=== PATIENT | male | born 1950 | race Caucasian/White ===

== ENCOUNTER 2018-08-29 16:30 | Observation (INO) | payer OTHER ==
[2018-08-29 17:09] LABS: Absolute Lymphocytes (CBC) 2.3 K/uL (0.7-4.9); Basophils % 0.2 % (0-1.3); Eosinophils % 0.5 % (0-4.4); Hematocrit 44.9 % (39.6-49.0); MPV 7.8 fL (7.6-11.3); Monocytes % 7.8 % (3.3-12.3); RBC Red Blood Cell Count 4.88 M/uL (4.33-5.43)
[2018-08-29 17:12] LABS: Protime INR 0.89
[2018-08-29] MEDS ORDERED: FENTANYL CITR 100 MCG/2 ML ONE (17:16)
[2018-08-29] MEDS ORDERED: PANTOPRAZOLE 40 MG INJ ONE (17:17)
[2018-08-29 17:30] LABS: ALT/SGPT 53 U/L (12-78); AST/SGOT 28 U/L (15-37); Albumin 4.5 g/dL (3.4-5.0); Alkaline Phosphatase 90 U/L (45-117); BUN Blood Urea Nitrogen 10 mg/dL (7-18); Bicarbonate 28 mmol/L (21-32); Bilirubin Direct < 0.1 mg/dL (0-0.2); Bilirubin Total 0.6 mg/dL (0.2-1.0); Glucose Level 87 mg/dL (74-106); Lipase 188 U/L (73-393); Magnesium 2.1 mg/dL (1.8-2.4); NT PRO-BNP 282 pg/mL (<125); Potassium 3.5 mmol/L (3.5-5.1); Protein, Total 7.6 g/dL (6.4-8.2); Sodium Level 137 mmol/L (136-145); Troponin (Emerg Dept Use Only) < 0.02 ng/mL (0.0-0.045)
[2018-08-29] MEDS ORDERED: PANTOPRAZOLE INJ 80 MG in NA CHLORIDE 0.9% 250 ML IV ONE (18:00)
--- NOTE | 2018-08-29 18:04 | RAD REPORT ---
EXAM DESCRIPTION: CT - Chest For Pe Angio - 08/29/2018 5:52 pm CLINICAL HISTORY: Chest pain. Chest pain;Dyspnea COMPARISON: No comparisons TECHNIQUE: CT angiogram of the pulmonary arteries was performed with MIP. All CT scans are performed using dose optimization technique as appropriate and may include automated exposure control or mA/KV adjustment according to patient size. FINDINGS: No evidence of pulmonary thromboembolism. No acute aortic finding demonstrated. The lungs are mildly emphysematous. No significant pericardial or pleural fluid. No concerning bony finding. IMPRESSION: No evidence of pulmonary thromboembolism. Mild COPD.
--- NOTE | 2018-08-29 18:07 | RAD REPORT ---
EXAM DESCRIPTION: CTAbdomen Pelvis W Contrast - 08/29/2018 5:53 pm CLINICAL HISTORY: Abdominal pain. no iv or oral contrast;Abd pain COMPARISON: No comparisons TECHNIQUE: Biphasic CT imaging of the abdomen and pelvis was performed with 100 ml non-ionic IV cont rast. All CT scans are performed using dose optimization technique as appropriate and may include automated exposure control or mA/KV adjustment according to patient size. FINDINGS: The lung bases are clear. The liver, spleen, pancreas, adrenal glands and kidneys are within normal limits. No bowel obstruction, free air, free fluid or abscess. The appendix is normal. No evidence of signi ficant lymphadenopathy. Moderate lumbar degenerative changes. IMPRESSION: No acute intra-abdominal or pelvic finding.
--- NOTE | 2018-08-29 18:47 | ER ---
Nurse's Notes [facility] Name: Kiko Kirkland Age: 68 yrs Sex: Male : 1950 Arrival Date: 08/29/2018 Time: 16:38 Bed 2 Private MD: Diagnosis: Chest pain, unspecified;Abdominal tenderness;Gastrointestinal hemorrhage, unspecified;Low back pain;Elevated white blood cell count;Tobacco use Presentation: 08/29 16:38 Presenting complaint: Patient states: abd pain, chest pain, and back pain with aa5 dark/bright red blood in stool and vomiting coffee ground. Pt states "I saw Dr. Floyd and he sent me to Dr. Mcduffie (GI) and he did a CT about 2 months ago". Pt also reports blood in urine and reports he has lost approximately 70lbs over the last 6 months. 16:38 Transition of care: patient was not received from another setting of care. Onset of aa5 symptoms was 2018. Risk Assessment: Do you want to hurt yourself or someone else? Patient reports no desire to harm self or others. Initial Sepsis Screen: Does the patient meet any 2 criteria? HR > 90 bpm. Does the patient have a suspected source of infection? No. Patient's initial sepsis screen is negative. Care prior to arrival: None. 16:38 Acuity: [place] 2 aa5 16:38 Method Of Arrival: [facility]: [facility] aa5 Historical: - Allergies: 16:38 No Known Allergies; aa5 - PMHx: 16:38 Thyroid problem; Chronic back pain; aa5 16:38 Hypertension; aa5 - Immunization history:: Adult Immunizations unknown. - Social history:: Smoking status: Patient uses tobacco products, smokes two packs cigarettes per day. - Ebola Screening: : No symptoms or risks identified at this time. Screenin:40 Abuse screen: Denies threats or abuse. Nutritional screening: No deficits noted. aa5 Tuberculosis screening: No symptoms or risk factors identified. Fall Risk IV access (20 points). Total [place] Fall Scale indicates No Risk (0-24 pts). Assessment: 16:38 General: Appears uncomfortable, Behavior is calm, cooperative. Pain: Complains of pain aa5 in right upper quadrant, left upper quadrant, right lower quadrant and left lower quadrant, mid-sternal area, and lower back Pain does not radiate. Pain currently is 10 out of 10 on a pain scale. Quality of pain is described as burning, aching, crampy, Pain began approximately 6 months ago. Pt reports back pain is chronic Is continuous. Neuro: Level of Consciousness is awake, alert, obeys commands, Oriented to person, place, time, situation. Cardiovascular: Heart tones S1 S2 present Rhythm is regular. Respiratory: Airway is patent Respiratory effort is even, unlabored, Respiratory pattern is regular, symmetrical, Breath sounds are diminished bilaterally. GI: Abdomen is flat, non-distended, Bowel sounds present X 4 quads. Abd is soft X 4 quads Abdomen is tender to palpation X 4 quads. Reports nausea, vomiting, Reports coffee ground emesis, reports blood in stool, last bloody stool was approximately 5 hours [employer]ILY [employer]ER. : Reports hematuria. EENT: No signs and/or symptoms were reported regarding the EENT system. Derm: Skin is pink, warm \\T\\ dry. Musculoskeletal: Range of motion: intact in all extremities. 17:33 Reassessment: Patient is alert, oriented x 3, equal unlabored respirations, skin aa5 warm/dry/pink. Pt states "the pain medicine helped a little bit but not much" . Pain: Pain currently is 9 out of 10 on a pain scale. 17:40 Reassessment: MARIPOSA notified of pt's request for pain medication . aa5 17:45 Reassessment: Pt taken to CT via stretcher . aa5 18:00 Reassessment: Patient is alert, oriented x 3, equal unlabored respirations, skin aa5 warm/dry/pink. Patient states feeling better. Pain: Pain currently is 7 out of 10 on a pain scale. 18:50 Reassessment: Patient is alert, oriented x 3, equal unlabored respirations, skin aa5 warm/dry/pink. Pt requesting pain medication at this time, Dr. Waggoner notified. . 18:50 Pain: Pain currently is 9 out of 10 on a pain scale. aa5 19:25 Reassessment: Patient and/or family updated on plan of care and expected duration. Pain jd3 level reassessed. Patient is alert, oriented x 3, equal unlabored respirations, skin warm/dry/pink. awaiting room number for admission. 20:30 Reassessment: Patient appears in no apparent distress at this time. Patient and/or jd3 family updated on plan of care and expected duration. Pain level reassessed. Patient is alert, oriented x 3, equal unlabored respirations, skin warm/dry/pink. 21:28 Reassessment: Report called to Osman HANNON. ea 21:37 Reassessment: Patient appears in no apparent distress at this time. Patient and/or jd3 family updated on plan of care and expected duration. Pain level reassessed. Patient is alert, oriented x 3, equal unlabored respirations, skin warm/dry/pink. 21:40 Reassessment: Patient and/or family updated on plan of care and expected duration. Pain ea level reassessed. Patient is alert, oriented x 3, equal unlabored respirations, skin warm/dry/pink. Pt admitted to second floor, pt taken via wheelchair, per tech. Pt tolerating well. Vital Signs: 16:40 BP 158 / 98; Pulse 109; Resp 20 S; Temp 98.7(O); Pulse Ox 99% on R/A; Weight 50.8 kg; aa5 Pain 10/10; 17:15 BP 151 / 97; Pulse 107; Resp 18 S; Pulse Ox 98% on R/A; aa5 18:00 BP 140 / 95; Pulse 100; Resp 18 S; Pulse Ox 98% on R/A; aa5 19:26 BP 164 / 97; Pulse 98; Resp 19 S; Pulse Ox 96% on R/A; jd3 21:38 BP 166 / 96; Pulse 90; Resp 18 S; Pulse Ox 100% on R/A; jd3 ED Course: 16:38 Patient arrived in ED. aa5 16:38 Arm band placed on Patient placed in an exam room, on a stretcher. aa5 16:38 Patient has correct armband on for positive identification. Placed in gown. Bed in low aa5 position. Call light in reach. Side rails up X2. 16:38 conveyor monitor on. Pulse ox on. NIBP on. aa5 16:39 Hal Simon PA is PHCP. jr8 16:39 Rylan Mon MD is Attending Physician. jr8 16:40 Initial lab(s) drawn, by ri, sent to lab. Inserted saline lock: 18 gauge in left aa5 antecubital area, using aseptic technique. Blood collected. 16:40 No provider procedures requiring assistance completed. aa5 16:52 EKG done, by glass technician. reviewed by Hal MONGE. sm3 16:55 Triage completed. aa5 16:57 Lianna Head, PARVEZ is Primary Nurse. aa5 17:[address] via stretcher. nj 17:52 CT Chest For PE Angio In Process Unspecified. EDMS 17:52 Abdomen In Process Unspecified. EDMS 17:56 Attending Physician role handed off by Rylan Mon MD jr8 17:56 Liam Waggoner MD is Attending Physician. jr8 18:40 XRAY Chest (1 view) In Process Unspecified. EDMS 18:43 Abundio Quigley MD is Hospitalizing Provider. [facility] 19:00 Report given to PARVEZ Martines and PARVEZ Crockett. aa5 21:40 Patient admitted, IV remains in place. ea Administered Medications: 17:07 Drug: fentaNYL (PF) 50 mcg Route: IVP; Site: left antecubital; aa5 17:33 Follow up: Response: No adverse reaction aa5 17:07 Drug: ProTONIX 40 mg Route: IVP; Site: left antecubital; aa5 17:33 Follow up: Response: No adverse reaction aa5 17:33 Drug: ProTONIX 8 mg/hr Route: IV; Rate: 25 ml/hr; Site: left antecubital; aa5 18:00 Follow up: Response: No adverse reaction aa5 21:40 Follow up: Response: No adverse reaction; IV Status: Infusion continued upon admission jd3 17:45 Drug: fentaNYL (PF) 50 mcg Route: IVP; Site: left antecubital; aa5 18:00 Follow up: Response: No adverse reaction; Pain is decreased aa5 18:57 Drug: morphine 4 mg Route: IVP; Site: left antecubital; aa5 19:50 Follow up: Response: No adverse reaction jd3 21:25 Drug: morphine 4 mg Route: IVP; Site: left antecubital; jd3 Point of Care Testing: Guaiac: 16:48 Stool Guaiac: Positive; Stool Hemoccult Control: Pass; aa5 16:48 Completed by MARIPOSA Wilcox aa5 Outcome: 18:46 Decision to Hospitalize by Provider. marisa 19:10 Instructed on the need for admit. ea 21:40 Ad[facility]surg accompanied by tech, via wheelchair, with chart, Report called to charleen Brewer RN 21:40 Condition: stable 21:48 Patient left the ED. charleen Signatures: Dispatcher [employer] EDLiam Molina MD MD cha Calderon, Audri, RN RN aa5 Hal Simon PA PA jr8 Toi Adams Elena, RN RN ea Davies, Jonathon, RN RN jAngélica Haque 3 Corrections: (The following items were deleted from the chart) 16:55 16:36 Presenting complaint: Patient states: abd pain, chest pain, and back pain with aa5 dark/bright red blood in stool and vomiting coffee ground. Pt states "I saw Dr. Floyd and he sent me to Dr. Mcduffie (GI) and he did a CT about 2 months ago". Pt also reports blood in urine and reports he has lost approximately 70lbs over the last 6 months. aa5 16:56 16:38 Method Of Arrival: Ambulatory aa aa
--- NOTE | 2018-08-29 18:47 | EDPHYS ---
Physician Documentation [facility] Name: Kiko Kirkland Age: 68 yrs Sex: Male : 1950 Arrival Date: 08/29/2018 Time: 16:38 Bed 2 Private MD: ED Physician Liam Waggoner HPI: 08/29 17:15 This 68 yrs old Male presents to ER via EMS with complaints of Abdominal jr8 Pain, Chest Pain. 17:15 Onset: The symptoms/episode began/occurred acutely, today. The symptoms do not radiate. jr8 Associated signs and symptoms: Pertinent positives: blood in stools, nausea, vomiting blood. The symptoms are described as dull. Modifying factors: The symptoms are alleviated by nothing, the symptoms are aggravated by food. Severity of pain: At its worst the pain was moderate in the emergency department the pain is unchanged. The patient has not experienced similar symptoms in the past. The patient has been recently seen by a physician:. Patient stated that he is currently being worked up for weight loss along with chest pain and abdominal pain. Stated that he has had hematemesis and melena off/on for several weeks. Trying to get cleared to see GI for endoscopy and colonoscopy. Came to ED today for worsening of symptoms . Historical: - Allergies: 16:38 No Known Allergies; aa5 - PMHx: 16:38 Thyroid problem; Chronic back pain; aa5 16:38 Hypertension; aa5 - Immunization history:: Adult Immunizations unknown. - Social history:: Smoking status: Patient uses tobacco products, smokes two packs cigarettes per day. - Ebola Screening: : No symptoms or risks identified at this time. ROS: 17:15 Eyes: Negative for injury, pain, redness, and discharge, ENT: Negative for injury, jr8 pain, and discharge, Neck: Negative for injury, pain, and swelling, Back: Negative for injury and pain, MS/Extremity: Negative for injury and deformity, Skin: Negative for injury, rash, and discoloration, Neuro: Negative for headache, weakness, numbness, tingling, and seizure. 17:15 Cardiovascular: Positive for chest pain, Negative for edema, orthopnea, palpitations, paroxysmal nocturnal dyspnea. 17:15 Respiratory: Positive for shortness of breath. 17:15 Abdomen/GI: Positive for abdominal pain, nausea, hematemesis, black/tarry stool. Exam: 17:15 Eyes: Pupils equal round and reactive to light, extra-ocular motions intact. Lids and jr8 lashes normal. Conjunctiva and sclera are non-icteric and not injected. Cornea within normal limits. Periorbital areas with no swelling, redness, or edema. ENT: Nares patent. No nasal discharge, no septal abnormalities noted. Tympanic membranes are normal and external auditory canals are clear. Oropharynx with no redness, swelling, or masses, exudates, or evidence of obstruction, uvula midline. Mucous membranes moist. Neck: Trachea midline, no thyromegaly or masses palpated, and no cervical lymphadenopathy. Supple, full range of motion without nuchal rigidity, or vertebral point tenderness. No Meningismus. Cardiovascular: Regular rate and rhythm with a normal S1 and S2. No gallops, murmurs, or rubs. Normal PMI, no JVD. No pulse deficits. Back: No spinal tenderness. No costovertebral tenderness. Full range of motion. Skin: Warm, dry with normal turgor. Normal color with no rashes, no lesions, and no evidence of cellulitis. MS/ Extremity: Pulses equal, no cyanosis. Neurovascular intact. Full, normal range of motion. Neuro: Awake and alert, GCS 15, oriented to person, place, time, and situation. Cranial nerves II-XII grossly intact. Motor strength 5/5 in all extremities. Sensory grossly intact. Cerebellar exam normal. Normal gait. 17:15 Abdomen/GI: Inspection: abdomen appears normal, Bowel sounds: active, all quadrants, Palpation: soft, in all quadrants, mild abdominal tenderness, in the abdomen diffusely, mass, is not appreciated, rebound tenderness, is not appreciated, voluntary guarding, is not appreciated, involuntary guarding, is not appreciated, no appreciated organomegaly, Rectal exam: Prostate: enlarged, rectal tone normal, Stool: brown, guaiac negative, hemorrhoid(s), external, without bleeding, without inflammation, without thrombosis, without pain, mass, is not appreciated, swelling, is not appreciated, tenderness, is not appreciated, the exam is chaperoned by the nurse, Indicators: McBurney's point is not tender, Orozco's sign is negative, Rovsing's sign is negative, Liver: tenderness, is not appreciated. 17:20 Respiratory: the patient does not display signs of respiratory distress, Respirations: jr8 tachypnea, that is mild, Breath sounds: are clear throughout, no bronchial sounds, no decreased breath sounds, no rales, rhonchi, no stridor, no wheezing. 17:31 ECG was reviewed by the Attending Physician. jr8 Vital Signs: 16:40 BP 158 / 98; Pulse 109; Resp 20 S; Temp 98.7(O); Pulse Ox 99% on R/A; Weight 50.8 kg; aa5 Pain 10/10; 17:15 BP 151 / 97; Pulse 107; Resp 18 S; Pulse Ox 98% on R/A; aa5 18:00 BP 140 / 95; Pulse 100; Resp 18 S; Pulse Ox 98% on R/A; aa5 19:26 BP 164 / 97; Pulse 98; Resp 19 S; Pulse Ox 96% on R/A; jd3 21:38 BP 166 / 96; Pulse 90; Resp 18 S; Pulse Ox 100% on R/A; jd3 MDM: 16:39 Patient medically screened. jr8 17:53 Data reviewed: vital signs, nurses notes, lab test result(s), EKG, radiologic studies, jr8 CT scan, plain films. Data interpreted: helicopter technician: rate is 110 beats/min, rhythm is regular, with no ectopy, Interpretation: tachycardia, Pulse oximetry: on room air is 99 %. Interpretation: normal. Counseling: I had a detailed discussion with the patient and/or guardian regarding: the historical points, exam findings, and any diagnostic results supporting the discharge/admit diagnosis, lab results, radiology results. Transition of care: After a detail discussion of the patient's case, care is transferred to Liam Waggoner MD. 08/29 16:39 Order name: Basic Metabolic Panel; Complete Time: 17:31 08/29 16:39 Order name: CBC with Diff; Complete Time: 17:20 [facility] 08/29 16:39 Order name: LFT's; Complete Time: 17:31 08/29 16:39 Order name: Magnesium; Complete Time: 17:31 08/29 16:39 Order name: NT PRO-BNP; Complete Time: 17:31 [facility] 08/29 16:39 Order name: PT-INR; Complete Time: 17:20 08/29 16:39 Order name: Troponin (emerg Dept Use Only); Complete Time: 17:31 jr8 08/29 16:39 Order name: Lipase; Complete Time: 17:31 jr8 08/29 16:40 Order name: TS; Complete Time: 18:41 jr8 08/29 17:21 Order name: Occult Blood--Ancillary; Complete Time: 17:49 bd 08/29 18:20 Order name: Urine Dipstick--Ancillary (enter results); Complete Time: 20:37 bd 08/29 20:04 Order name: ABO/RH no charge; Complete Time: 20:37 EDMS 08/29 20:54 Order name: CBC with Automated Diff EDMS 08/29 20:54 Order name: CBC with Automated Diff; Complete Time: 17:24 EDMS 08/29 16:39 Order name: XRAY Chest (1 view); Complete Time: 20:37 jr8 08/29 17:31 Order name: CT Chest For PE Angio; Complete Time: 18:41 jr8 08/29 17:37 Order name: Abdomen ; Complete Time: 18:41 EDMS 08/29 20:54 Order name: Echo with Doppler EDMS 08/29 20:54 Order name: Lipid Profile EDMS 08/29 20:54 Order name: Lipid Profile; Complete Time: 17:24 EDMS 08/29 20:54 Order name: Troponin I EDMS 08/29 20:54 Order name: Troponin I; Complete Time: 17:24 EDMS 08/29 20:54 Order name: Troponin I EDMS 08/29 16:39 Order name: EKG; Complete Time: 16:41 jr8 08/29 16:39 Order name: Cardiac monitoring; Complete Time: 16:57 jr8 08/29 16:39 Order name: EKG - Nurse/Tech; Complete Time: 16:57 jr8 08/29 16:39 Order name: IV Saline Lock; Complete Time: 16:57 jr8 08/29 16:39 Order name: Labs collected and sent; Complete Time: 16:58 jr8 08/29 16:39 Order name: O2 Per Protocol; Complete Time: 16:58 jr8 08/29 16:39 Order name: O2 Sat Monitoring; Complete Time: 16:58 jr8 08/29 17:22 Order name: Labs - recollect needed; Complete Time: 17:45 bd 08/29 20:54 Order name: CONS Physician Consult [facility] 08/29 20:54 Order name: Clear Liquid [facility] 08/29 20:54 Order name: EKG Electrocardiogram [facility] 08/29 20:54 Order name: EKG Electrocardiogram [facility] EC:31 Rate is 104 beats/min. Rhythm is regular, Sinus tachycardia. QRS [place] is Normal. NE jr8 interval is normal at 124 msec. QRS interval is normal at 72 msec. QT interval is prolonged at 468 msec. No Q waves. T waves are Normal. No ST changes noted. Clinical impression: Sinus tachycardia and No evidence of ischemia. Interpreted by me. Reviewed by me. Administered Medications: 17:07 Drug: fentaNYL (PF) 50 mcg Route: IVP; Site: left antecubital; aa5 17:33 Follow up: Response: No adverse reaction aa5 17:07 Drug: ProTONIX 40 mg Route: IVP; Site: left antecubital; aa5 17:33 Follow up: Response: No adverse reaction aa5 17:33 Drug: ProTONIX 8 mg/hr Route: IV; Rate: 25 ml/hr; Site: left antecubital; aa5 18:00 Follow up: Response: No adverse reaction aa5 21:40 Follow up: Response: No adverse reaction; IV Status: Infusion continued upon admission jd3 17:45 Drug: fentaNYL (PF) 50 mcg Route: IVP; Site: left antecubital; aa5 18:00 Follow up: Response: No adverse reaction; Pain is decreased aa5 18:57 Drug: morphine 4 mg Route: IVP; Site: left antecubital; aa5 19:50 Follow up: Response: No adverse reaction jd3 21:25 Drug: morphine 4 mg Route: IVP; Site: left antecubital; jd3 Point of Care Testing: Guaiac: 16:48 Stool Guaiac: Positive; Stool Hemoccult Control: Pass; aa5 16:48 Completed by MARIPOSA Wilcox aa5 Disposition: 18:46 Co-signature as Attending Physician, Liam Waggoner MD I agree with the assessment and marisa plan of care. Disposition: 08/29/18 18:46 Hospitalization ordered by Abundio Quigley for Inpatient Admission. Preliminary diagnosis are Chest pain, unspecified, Abdominal tenderness, Gastrointestinal hemorrhage, unspecified, Low back pain, Elevated white blood cell count, Tobacco use. - Bed requested for Telemetry/MedSurg (Inpatient). - Status is Inpatient Admission. ea - Condition is Fair. - Problem is new. - Symptoms have improved. UTI on Admission? No Signatures: Dispatcher [employer] EDMS Ana Benton Corey, MD MD cha Calderon, Audri, RN RN aa5 Alfred, Hal, PA PA jr8 Candi Dye RN RN df Antunez, Elena, RN RN ea Davies, Jonathon, RN RN jd3 Corrections: (The following items were deleted from the chart) 17:20 17:15 Eyes: Pupils equal round and reactive to light, extra-ocular motions intact. Lids jr8 and lashes normal. Conjunctiva and sclera are non-icteric and not injected. Cornea within normal limits. Periorbital areas with no swelling, redness, or edema. ENT: Nares patent. No nasal discharge, no septal abnormalities noted. Tympanic membranes are normal and external auditory canals are clear. Oropharynx with no redness, swelling, or masses, exudates, or evidence of obstruction, uvula midline. Mucous membranes moist. Neck: Trachea midline, no thyromegaly or masses palpated, and no cervical lymphadenopathy. Supple, full range of motion without nuchal rigidity, or vertebral point tenderness. No Meningismus. Cardiovascular: Regular rate and rhythm with a normal S1 and S2. No gallops, murmurs, or rubs. Normal PMI, no JVD. No pulse deficits. Back: No spinal tenderness. No costovertebral tenderness. Full range of motion. Skin: Warm, dry with normal turgor. Normal color with no rashes, no lesions, and no evidence of cellulitis. MS/ Extremity: Pulses equal, no cyanosis. Neurovascular intact. Full, normal range of motion. Neuro: Awake and alert, GCS 15, oriented to person, place, time, and situation. Cranial nerves II-XII grossly intact. Motor strength 5/5 in all extremities. Sensory grossly intact. Cerebellar exam normal. Normal gait. jr8 17:21 17:15 Abdomen/GI: Inspection: abdomen appears normal, Bowel sounds: active, all jr8 quadrants, Palpation: soft, in all quadrants, mild abdominal tenderness, in the abdomen diffusely, mass, is not appreciated, rebound tenderness, is not appreciated, voluntary guarding, is not appreciated, involuntary guarding, is not appreciated, no appreciated organomegaly, Rectal exam: Prostate: enlarged, rectal tone normal, Stool: brown, guaiac positive, hemorrhoid(s), external, without bleeding, without inflammation, without thrombosis, without pain, mass, is not appreciated, swelling, is not appreciated, tenderness, is not appreciated, the exam is chaperoned by the nurse, Indicators: McBurney's point is not tender, Orozco's sign is negative, Rovsing's sign is negative, Liver: tenderness, is not appreciated, jr8 17:37 17:32 Abdomen Pelvis Wo Con+CT.RAD.BRZ ordered. EDMS EDMS 20:38 18:46 Hospitalization Ordered by Abundio Quigley MD for Inpatient Admission. Preliminary [facility] diagnosis is Chest pain, unspecified; Abdominal tenderness; Gastrointestinal hemorrhage, unspecified; Low back pain. Bed requested for Telemetry/MedSurg (Inpatient). Status is Inpatient Admission. Condition is Fair. Problem is new. Symptoms have improved. UTI on Admission? No. marisa 21:02 20:38 08/29/2018 18:46 Hospitalization Ordered by Abundio Quigley MD for Inpatient df Admission. Preliminary diagnosis is Chest pain, unspecified; Abdominal tenderness; Gastrointestinal hemorrhage, unspecified; Low back pain; Elevated white blood cell count; Tobacco use. Bed requested for Telemetry/MedSurg (Inpatient). Status is Inpatient Admission. Condition is Fair. Problem is new. Symptoms have improved. UTI on Admission? No. marisa 21:48 21:02 08/29/2018 18:46 Hospitalization Ordered by Abundio Quigley MD for Inpatient ea Admission. Preliminary diagnosis is Chest pain, unspecified; Abdominal tenderness; Gastrointestinal hemorrhage, unspecified; Low back pain; Elevated white blood cell count; Tobacco use. Bed requested for Telemetry/MedSurg (Inpatient). Status is Inpatient Admission. Condition is Fair. Problem is new. Symptoms have improved. UTI on Admission? No. df
[2018-08-29 18:48] LABS: Urine Blood NEGATIVE (NEG); Urine Glucose NEGATIVE (NEG); Urine Protein NEGATIVE (NEG)
[2018-08-29] MEDS ORDERED: MORPHINE 4 MG/ML SYR ONE (19:08)
--- NOTE | 2018-08-29 19:56 | RAD REPORT ---
EXAM DESCRIPTION: RAD - Chest Single View - 08/29/2018 6:42 pm CLINICAL HISTORY: DYSPNEA Chest pain. COMPARISON: No comparisons FINDINGS: Portable technique limits examination quality. The lungs are emphysematous but grossly clear. The heart is normal in size. No displaced fractures. IMPRESSION: COPD.
[2018-08-29] MEDS ORDERED: ACETAMINOPHEN 500 MG TAB PO PRN (20:49)
[2018-08-29] MEDS ORDERED: ALPRAZOLAM 0.25 MG TABLET PO PRN (20:49)
[2018-08-29] MEDS: METOPROLOL TAR 50 MG TAB PO SCH (22:28)
[2018-08-29] MEDS: MORPHINE 4 MG/ML SYR IV PRN (22:33)
[2018-08-30] MEDS: MORPHINE 4 MG/ML SYR IV PRN ×3 (02:38→11:01)
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
[2018-08-30 05:44] LABS: Absolute Lymphocytes (CBC) 3.7 K/uL (0.7-4.9); Absolute Monocytes 0.8 K/uL (0.1-1.3); Absolute Neutrophil 4.7 K/uL (1.8-8.0); Basophils % 0.5 % (0-1.3); Hematocrit 40.5 % (39.6-49.0); Lymphocytes % 39.3 % (15.3-44.8); MPV 7.6 fL (7.6-11.3); Monocytes % 8.8 % (3.3-12.3); RBC Red Blood Cell Count 4.38 M/uL (4.33-5.43)
[2018-08-30] MEDS ORDERED: REGADENOSON 0.4 MG/5 ML SYR IV ONE (08:52)
[2018-08-30] MEDS ORDERED: AZITHROMYCIN 250 MG TAB PO SCH (09:00)
[2018-08-30] MEDS ORDERED: ASPIRIN EC 81 MG TAB PO SCH (09:00)
[2018-08-30] MEDS ORDERED: predniSONE 20 MG TAB PO SCH (09:00)
[2018-08-30] MEDS ORDERED: LOSARTAN POTASSIUM 50 MG TABLET PO SCH (09:00)
[2018-08-30] MEDS: METOPROLOL TAR 50 MG TAB PO SCH (09:07)
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
--- NOTE | 2018-08-30 11:43 | EKG ---
Test Date: 2018-08-30 Test Time: 08:22:45 Gas Singer: AUDREY MEASUREMENT RESULTS: Intervals: Rate: 81 MS: 132 QRSD: 76 QT: 370 QTc: 429 [place]: P: 75 MS: 132 QRS: 56 T: 70 INTERPRETIVE STATEMENTS: Sinus rhythm Normal ECG Compared to ECG 08/29/2018 16:47:07 Sinus tachycardia no longer present Electronically Signed On 08-30-18 09:59:11 CDT by Rodriguez Green
--- NOTE | 2018-08-30 11:46 | EKG ---
Test Date: 2018-08-29 Test Time: 16:47:07 Survey Technologist: NICK MEASUREMENT RESULTS: Intervals: Rate: 104 [place]: 124 QRSD: 72 QT: 356 QTc: 468 [place]: P: 83 [place]: 124 QRS: 45 T: 66 INTERPRETIVE STATEMENTS: Sinus tachycardia Otherwise normal ECG No previous ECG available for comparison Electronically Signed On 08-30-18 10:06:14 CDT by Rodriguez Green
--- NOTE | 2018-08-30 12:17 | TREADPHA ---
DX: CHEST PAIN Date of Study: 08/30/18 Ht: 5 9 Wt: 117 lb 0 oz Consulting Physician: REBECCA MEDICATIONS: NONE HISTORY: 68 YEAR OLD MALE, WITH COMPLAINTS OF BACK PAIN, STOMACH PAIN, CHEST PAIN, HISTORY OF HYPERTENSION, CHRONIC PAIN, THYROID PROBLEMS. SMOKER- PACK DAILY. NON-DRINKER. PHYSICIAL EXAMINATION: RESTING B.P.: 161/93 RESTING H.R.: 73 RESTING EKG: NORMAL PROTOCOL: LEXISCAN EXERCISE TIME: 3:30 B.P. AT PEAK STRESS: 154/90 IMPRESSION: LEXISCAN INJECTED, FOLLOWED BY CARDIOLITE PER PROTOCOL. SEE NUCLEAR MEDICINE REPORT. NO SUPRA VENTRICULAR TACHYCARDIA, VENTRICULAR TACHYCARDIA, PREMATURE ATRIAL COMPLEXES, PREMATURE VENTRICULAR COMPLEXES. PATIENT REPORTS 7/10 CHRONIC PAIN. NON DIAGNOSTIC EKG WITH LEXISCAN STRESS.
--- NOTE | 2018-08-30 12:45 | RAD REPORT ---
EXAM DESCRIPTION: NM - Rest Stress Cardiac Imaging - 08/30/2018 12:37 pm CLINICAL HISTORY: CP Chest pain. COMPARISON: No comparisons TECHNIQUE: The patient was administered approximately 10mCi of Tc 99m Sestamibi prior to resting SPE CT imaging of the heart. The patient was then administered approximately 30 mCi of Tc 99m Sestamibi f ollowing exercise or pharmacologic stress. Multiplanar SPECT images were reviewed. FINDINGS: No stress induced ischemic defect is seen to suggest stress induced ischemia. No fixed def ect is seen to suggest hibernating myocardium or scarred myocardium. The end diastolic volume is 83 ml, the end systolic volume is 34 ml, and the ejection fraction is 59 %. IMPRESSION: No stress induced ischemia.
--- NOTE | 2018-08-30 17:22 | ECHO ---
HEIGHT: 5 ft 9 in WEIGHT: 117 lb 0 oz DATE OF STUDY: 08/30/[address]: Abundio Quigley MD 2-DIMENSIONAL: YES M.MODE: YES DOPPLER: YES COLOR FLOW: YES TDS: YES PORTABLE: DEFINITY: BUBBLE STUDY: DIAGNOSIS: CHEST PAIN CARDIAC HISTORY: CATHERIZATION: NO SURGERY: NO PROSTHETIC VALVE: NO PACEMAKER: NO MEASUREMENTS (cm) DIASTOLIC (NORMALS) SYSTOLIC (NORMALS) IVSd 0.9 (0.6-1.2) LA Diam 3.7 (1.9-4.0) LVEF 62% LVIDd 3.6 (3.5-5.7) LVIDs 2.4 (2.0-3.5) %FS 33% LVPWd 1.0 (0.6-1.2) 2 DIMENSIONAL ASSESSMENT: RIGHT ATRIUM: NORMAL LEFT ATRIUM: NORMAL RIGHT VENTRICLE: NORMAL LEFT VENTRICLE: NORMAL TRICUSPID VALVE: NORMAL MITRAL VALVE: NORMAL PULMONIC VALVE: NORMAL AORTIC VALVE: NORMAL PERICARDIAL EFFUSION: NONE AORTIC ROOT: NORMAL LEFT VENTRICULAR WALL MOTION: NORMAL DOPPLER/COLOR FLOW: NORMAL COMMENTS: NORMAL TWO DIMENSIONAL ECHOCARDIOGRAM WITH DOPPLER. TECHNOLOGIST: PAMELLA HANCOCK
== END 2018-08-30 16:05 | disposition home or self-care (01) ==
LOC: ER 16:30 → ERHOLD 20:49 → 2ND 21:32
PROVIDERS: ADMIT Hospitalist; ATTEND Hospitalist
DX: J44.1 Chronic obstructive pulmonary disease with (acute) exacerbation (principal); R07.9 Chest pain, unspecified; R10.9 Unspecified abdominal pain; R05 Cough; I10 Essential (primary) hypertension; F17.210 Nicotine dependence, cigarettes, uncomplicated; G89.4 Chronic pain syndrome; D72.829 Elevated white blood cell count, unspecified
CPT/HCPCS: 96365; 93005 ×2; 93017; 93306; 87070; 85025 ×2; 80048; 36415; 86900; 83735; 86850; 87205; 85610; 80061; 86901; 80076; 82272; 81003; 84484 ×3; 83690; 83880; 71275; 74177; 71045; 78452; 96375; 99285; 96366; Q9967; C9113 ×2; J3010; J2785; A9500; G0378 ×2; J7512